=== PATIENT | female | born 1985 | race African-American/Black ===

== ENCOUNTER 2017-08-18 10:43 | Emergency (ER) | payer OTHER ==
[~2017-08-18] VITALS: Ht 167.6 cm; Wt 91.0 kg
[~2017-08-18 10:43] MED LIST: ALBUTEROL; AMLO5TAB4; BENA20TA77; QVAR; TLXL5
[2017-08-18] MEDS ORDERED: SODIUM CHLORIDE 0.9% 1,000 ML IV ONE (13:10)
[2017-08-18] MEDS ORDERED: IBUPROFEN 600MG TABLET PO STA (13:10)
[2017-08-18] MEDS ORDERED: ACETAMINOPHEN 325MG TABLET PO ONE (13:15)
[2017-08-18 13:54] LABS: BASOPHILS % 0.4 % (0.0-2.0); EOSINOPHILS % 0.1 % (0.0-5.0); HEMATOCRIT. 40.1 % (36.0-48.0); HEMOGLOBIN. 13.6 g/dL (12.0-16.0); LYMPHOCYTES % 11.1 % (20.0-50.0); MEAN CORPUSCULAR HEMOGLOBIN 30.4 pg (28.0-32.0); MEAN CORPUSCULAR VOLUME 89.9 fL (81.0-99.0); MEAN PLATELET VOLUME 10.3 fl (7.4-10.4); MONOCYTES % 9.8 % (2.0-8.0); NEUTROPHILS % 78.6 % (40.0-76.0); PLATELET 181 x1000/uL (130-400); RED BLOOD CELL COUNT 4.46 mill/uL (4.2-5.4)
[2017-08-18] MEDS ORDERED: OSELTAMIVIR 75MG CAPSULE PO ONE (14:00)
[2017-08-18 14:23] LABS: CHLORIDE 103 mEq/L (98-107)
[2017-08-18 14:42] LABS: CARBON DIOXIDE 24 mEq/L (21-32)
[2017-08-18 14:56] VITALS: BP 121/78
== END 2017-08-18 14:57 | disposition home or self-care (01) ==
LOC: ER 10:43
DX: J11.1 Influenza due to unidentified influenza virus with other respiratory manifestations (principal); J45.909 Unspecified asthma, uncomplicated; Z88.0 Allergy status to penicillin; Z87.440 Personal history of urinary (tract) infections; Z98.890 Other specified postprocedural states
CPT/HCPCS: 36415; 71045; 80053; 81025; 85025; 87804; 99285; J7030

== ENCOUNTER 2018-09-17 12:45 | Emergency (ER) | payer OTHER ==
[~2018-09-17] VITALS: Ht 167.6 cm; Wt 109.0 kg
[2018-09-17 16:07] VITALS: BP 145/95
== END 2018-09-17 16:08 | disposition home or self-care (01) ==
LOC: ER 15:05
DX: L98.8 Other specified disorders of the skin and subcutaneous tissue (principal)
CPT/HCPCS: 81025; 99282

== ENCOUNTER 2020-11-08 15:41 | Emergency (ER) | payer OTHER ==
[~2020-11-08] VITALS: Ht 167.6 cm; Wt 97.7 kg
[2020-11-08] MEDS ORDERED: KETOROLAC 30MG/ML VIAL IV STA (16:12)
[2020-11-08] MEDS ORDERED: MAGNESIUM/ALUMINUM HYDROXIDE/SIMETHICONE 30ML UDC PO STA (16:12)
[2020-11-08] MEDS ORDERED: SODIUM CHLORIDE 0.9% 1,000 ML IV ONE (16:15)
[2020-11-08 17:03] LABS: BASOPHILS % 0.3 % (0.0-2.0); EOSINOPHILS % 1.9 % (0.0-5.0); HEMATOCRIT. 34.9 % (36.0-48.0); HEMOGLOBIN. 11.3 g/dL (12.0-16.0); LYMPHOCYTES % 26.7 % (20.0-50.0); MEAN CORPUSCULAR HEMOGLOBIN 28.2 pg (28.0-32.0); MEAN CORPUSCULAR VOLUME 86.8 fL (81.0-99.0); MEAN PLATELET VOLUME 10.6 fl (7.4-10.4); MONOCYTES % 9.2 % (2.0-8.0); NEUTROPHILS % 61.9 % (40.0-76.0); PLATELET 203 x1000/uL (130-400); RED BLOOD CELL COUNT 4.02 mill/uL (4.2-5.4); RED CELL DISTRIBUTION WIDTH 15.2 % (11.6-14.6)
[2020-11-08 17:12] LABS: CHLORIDE 108 mEq/L (98-107)
[2020-11-08 17:13] LABS: PROTHROMBIN TIME 10.6 sec (9.6-11.0)
[2020-11-08 17:16] LABS: HCG SCREEN NEGATIVE
[2020-11-08 17:18] LABS: ETHANOL BLOOD < 10 mg/dL
[2020-11-08 22:04] LABS: CLARITY URINE CLOUDY (CLEAR); COLOR URINE YELLOW (YELLOW); KETONES URINE NEGATIVE (NEGATIVE); LEUKOCYTE ESTERASE URINE 3+ (NEGATIVE); NITRITE URINE NEGATIVE (NEGATIVE); OCCULT BLOOD URINE NEGATIVE (NEGATIVE); PH URINE 7.5 (4.5-8.0); PROTEIN URINE NEGATIVE (NEGATIVE); UROBILINOGEN URINE 0.2 E.U./dL (0.2-1.0)
[2020-11-08] MEDS ORDERED: IBUP-2029 MT (22:13)
[2020-11-08 22:24] LABS: *AMPHETAMINES SCREEN URINE NEGATIVE (NEGATIVE); *BARBITURATES SCREEN URINE NEGATIVE (NEGATIVE); CANNABINOID URINE SCREEN NEGATIVE (NEGATIVE); PHENCYCLIDINE URINE SCREEN NEGATIVE (NEGATIVE)
[2020-11-08 22:25] LABS: *BENZODIAZEPINES SCREEN URINE NEGATIVE (NEGATIVE); *COCAINE SCREEN URINE NEGATIVE (NEGATIVE); METHADONE URINE SCREEN NEGATIVE (NEGATIVE); OPIATES URINE SCREEN NEGATIVE (NEGATIVE)
[2020-11-08 22:45] VITALS: BP 129/78
== END 2020-11-08 22:46 | disposition home or self-care (01) ==
LOC: ER 15:41
DX: K80.50 Calculus of bile duct without cholangitis or cholecystitis without obstruction (principal); J45.909 Unspecified asthma, uncomplicated; Z88.0 Allergy status to penicillin; Z98.890 Other specified postprocedural states
CPT/HCPCS: 36415; 76705; 80053; 80305; 80320; 81003; 83690; 84703; 85025; 85610; 87086; 93005; 96361; 96374; 99285; J1885; J7030; Z7610; G0480

== ENCOUNTER 2021-01-21 01:30 | Emergency (ER) | payer MEDICAID, OTHER ==
[~2021-01-21] VITALS: Ht 167.6 cm; Wt 100.0 kg
[~2021-01-21 01:30] MED LIST changes: +IBUP-2029 MT
[2021-01-21] MEDS ORDERED: MORPHINE SULFATE 4 MG/ML CPJ (NOT FOR IM USE) IV STA (03:03)
[2021-01-21] MEDS ORDERED: ONDANSETRON HCL 4MG/2ML INJ IV STA (03:03)
[2021-01-21] MEDS ORDERED: SODIUM CHLORIDE 0.9% 1,000 ML IV ONE (03:15)
[2021-01-21 03:30] LABS: BASOPHILS % 0.7 % (0.0-2.0); EOSINOPHILS % 0.9 % (0.0-5.0); HEMATOCRIT. 33.2 % (36.0-48.0); LYMPHOCYTES % 18.1 % (20.0-50.0); MEAN CORPUSCULAR HEMOGLOBIN 28.6 pg (28.0-32.0); MEAN CORPUSCULAR VOLUME 86.1 fL (81.0-99.0); MEAN PLATELET VOLUME 9.9 fl (7.4-10.4); MONOCYTES % 6.2 % (2.0-8.0); NEUTROPHILS % 74.1 % (40.0-76.0); PLATELET 221 x1000/uL (130-400); RED BLOOD CELL COUNT 3.86 mill/uL (4.2-5.4); RED CELL DISTRIBUTION WIDTH 15.3 % (11.6-14.6)
[2021-01-21 03:31] LABS: CLARITY URINE CLOUDY (CLEAR); COLOR URINE YELLOW (YELLOW); KETONES URINE TRACE (NEGATIVE); LEUKOCYTE ESTERASE URINE TRACE (NEGATIVE); NITRITE URINE NEGATIVE (NEGATIVE); OCCULT BLOOD URINE NEGATIVE (NEGATIVE); PH URINE 5.5 (4.5-8.0); PROTEIN URINE NEGATIVE (NEGATIVE); SPECIFIC GRAVITY URINE 1.029 (1.005-1.030); UROBILINOGEN URINE 0.2 E.U./dL (0.2-1.0)
[2021-01-21 03:39] LABS: CHLORIDE 108 mEq/L (98-107)
[2021-01-21 03:47] LABS: PROTHROMBIN TIME 10.8 sec (9.6-11.0)
[2021-01-21] MEDS ORDERED: TRAM50TA MT (06:04)
[2021-01-21] MEDS ORDERED: NITR-87 MT (06:04)
[2021-01-21 06:19] VITALS: BP 130/84
== END 2021-01-21 06:20 | disposition home or self-care (01) ==
LOC: ER 01:30
DX: K80.50 Calculus of bile duct without cholangitis or cholecystitis without obstruction (principal); N39.0 Urinary tract infection, site not specified; R11.10 Vomiting, unspecified; J45.909 Unspecified asthma, uncomplicated; Z88.0 Allergy status to penicillin; Z79.899 Other long term (current) drug therapy; Z98.890 Other specified postprocedural states
CPT/HCPCS: 36415; 76705; 80053; 81003; 81025; 83690; 85025; 85610; 93005; 96361; 96374; 96375; 99285; J2270; J2405; J7030

== ENCOUNTER 2021-12-22 17:36 | Emergency (ER) | payer MEDICAID, OTHER ==
[~2021-12-22] VITALS: Ht 165.1 cm; Wt 75.0 kg
[~2021-12-22 17:36] MED LIST changes: +NITR-87 MT; +TRAM50TA MT
[2021-12-22] MEDS ORDERED: AZITHROMYCIN 500 MG TABLET PO ONE (18:30)
[2021-12-22] MEDS ORDERED: AZITHROMYCIN 500 MG TABLET PO NR (19:00)
[2021-12-22] MEDS: IBUPROFEN 600MG TABLET PO NR ×2 (19:00→20:24)
[2021-12-22] MEDS ORDERED: IBUP-2029 MT (19:59)
[2021-12-22] MEDS ORDERED: AZIT250T12 MT (19:59)
[2021-12-22 20:24] VITALS: BP 131/83
== END 2021-12-22 20:00 | disposition home or self-care (01) ==
LOC: ER 17:36
DX: J03.90 Acute tonsillitis, unspecified (principal); I10 Essential (primary) hypertension; M79.18 Myalgia, other site; R19.7 Diarrhea, unspecified; J45.909 Unspecified asthma, uncomplicated
CPT/HCPCS: 81025; 87070; 87077; 87430; 99283

== ENCOUNTER 2022-02-03 18:16 | Emergency (ER) | payer OTHER ==
[~2022-02-03] VITALS: Ht 167.6 cm; Wt 105.0 kg
[~2022-02-03 18:16] MED LIST changes: +AZIT250T12 MT
[2022-02-03] MEDS ORDERED: KETOROLAC 60MG/2ML VIAL IM ONE (20:30)
[2022-02-03] MEDS ORDERED: HYDROCODONE/ACETAMINOPHEN 10/325MG TABLET PO ONE (20:30)
[2022-02-03] MEDS ORDERED: IBUP-2029 MT (20:37)
[2022-02-03] MEDS ORDERED: HYDR-4001 MT (20:37)
[2022-02-03 20:52] VITALS: BP 142/87
[2022-02-04] MEDS ORDERED: CYCL10TA21 MT (17:11)
== END 2022-02-03 21:00 | disposition home or self-care (01) ==
LOC: ER 18:16
DX: S46.912A Strain of unspecified muscle, fascia and tendon at shoulder and upper arm level, left arm, initial encounter (principal); J45.909 Unspecified asthma, uncomplicated; Z88.0 Allergy status to penicillin; Z79.899 Other long term (current) drug therapy; Z98.890 Other specified postprocedural states; X58.XXXA Exposure to other specified factors, initial encounter; Y93.89 Activity, other specified; Y92.89 Other specified places as the place of occurrence of the external cause; Y99.8 Other external cause status
CPT/HCPCS: 96372; 99283; J1885

== ENCOUNTER 2022-02-04 15:44 | Emergency (ER) | payer OTHER ==
[~2022-02-04] VITALS: Ht 167.6 cm; Wt 104.0 kg
[~2022-02-04 15:44] MED LIST changes: +HYDR-4001 MT
[2022-02-04 15:48] VITALS: BP 152/96
[2022-02-04] MEDS ORDERED: KETOROLAC 60MG/2ML VIAL IM ONE (16:15)
[2022-02-04] MEDS ORDERED: CYCL10TA21 MT (17:11)
== END 2022-02-04 17:40 | disposition home or self-care (01) ==
LOC: ER 15:44
DX: M54.12 Radiculopathy, cervical region (principal); R03.0 Elevated blood-pressure reading, without diagnosis of hypertension
CPT/HCPCS: 72040; 99283

== ENCOUNTER 2022-10-03 22:14 | Emergency (ER) | payer MEDICAID, OTHER ==
[~2022-10-03] VITALS: Ht 167.6 cm; Wt 104.0 kg
[~2022-10-03 22:14] MED LIST changes: +CYCL10TA21 MT
[2022-10-03 23:13] VITALS: BP 135/89
[2022-10-03] MEDS ORDERED: ONDANSETRON 4MG ODT PO STA (23:51)
[2022-10-03] MEDS ORDERED: KETOROLAC 60MG/2ML VIAL IM STA (23:51)
[2022-10-04 00:15] LABS: BASOPHILS % 0.4 % (0.0-2.0); EOSINOPHILS % 2.6 % (0.0-5.0); HEMATOCRIT. 33.8 % (36.0-48.0); HEMOGLOBIN. 11.1 g/dL (12.0-16.0); LYMPHOCYTES % 30.1 % (20.0-50.0); MEAN CORPUSCULAR HEMOGLOBIN 28.2 pg (28.0-32.0); MEAN CORPUSCULAR VOLUME 85.5 fL (81.0-99.0); MEAN PLATELET VOLUME 9.8 fl (7.4-10.4); MONOCYTES % 11.7 % (2.0-8.0); NEUTROPHILS % 55.2 % (40.0-76.0); PLATELET 220 x1000/uL (130-400); RED BLOOD CELL COUNT 3.95 mill/uL (4.2-5.4)
[2022-10-04 00:21] LABS: CHLORIDE 109 mEq/L (98-107)
[2022-10-04] MEDS ORDERED: IBUP-2029 MT (01:13)
== END 2022-10-04 01:49 | disposition home or self-care (01) ==
LOC: ER 22:28
DX: K80.20 Calculus of gallbladder without cholecystitis without obstruction (principal); K76.0 Fatty (change of) liver, not elsewhere classified; J45.909 Unspecified asthma, uncomplicated; Z79.899 Other long term (current) drug therapy; Z98.890 Other specified postprocedural states
CPT/HCPCS: 36415; 76705; 80053; 81025; 83690; 85025; 96372; 99285; J1885; Q0162; Z7610

== ENCOUNTER 2022-10-17 15:07 | Inpatient (IN) | payer OTHER ==
[~2022-10-17] VITALS: Ht 165.1 cm; Wt 89.8 kg
[2022-10-17] MEDS ORDERED: ONDANSETRON HCL 4MG/2ML INJ IV STA (19:18)
[2022-10-17] MEDS ORDERED: MORPHINE SULFATE 4 MG/ML CPJ (NOT FOR IM USE) IV STA (19:18)
[2022-10-17 20:47] LABS: BASOPHILS % 0.2 % (0.0-2.0); EOSINOPHILS % 1.1 % (0.0-5.0); HEMATOCRIT. 36.8 % (36.0-48.0); HEMOGLOBIN. 12.1 g/dL (12.0-16.0); MEAN CORPUSCULAR HEMOGLOBIN 28.3 pg (28.0-32.0); MEAN CORPUSCULAR VOLUME 86.3 fL (81.0-99.0); MEAN PLATELET VOLUME 10.6 fl (7.4-10.4); MONOCYTES % 3.9 % (2.0-8.0); NEUTROPHILS % 81.8 % (40.0-76.0); PLATELET 241 x1000/uL (130-400); RED BLOOD CELL COUNT 4.26 mill/uL (4.2-5.4); RED CELL DISTRIBUTION WIDTH 15.5 % (11.6-14.6)
[2022-10-17 20:54] LABS: CHLORIDE 103 mEq/L (98-107)
[2022-10-17 20:57] LABS: CLARITY URINE CLOUDY (CLEAR); COLOR URINE ORANGE (YELLOW); KETONES URINE 1+ (NEGATIVE); LEUKOCYTE ESTERASE URINE 1+ (NEGATIVE); NITRITE URINE NEGATIVE (NEGATIVE); OCCULT BLOOD URINE 3+ (NEGATIVE); PH URINE 5.5 (4.5-8.0); PROTEIN URINE 3+ (NEGATIVE); SPECIFIC GRAVITY URINE 1.024 (1.005-1.030)
[2022-10-17 21:06] LABS: HCG SCREEN NEGATIVE
[2022-10-17] MEDS ORDERED: METRONIDAZOLE 500 MG PREMIX 100 ML IV ONE (22:00)
[2022-10-17] MEDS ORDERED: LEVOFLOXACIN 750MG PREMIX 150 ML IV ONE (22:00)
[2022-10-18] MEDS ORDERED: KETOROLAC 15MG/ML VIAL IV ONE (01:15)
[2022-10-18] MEDS ORDERED: ONDANSETRON HCL 4MG/2ML INJ IV ONE (01:15)
[2022-10-18] MEDS ORDERED: KETOROLAC 15MG/ML VIAL IV NR (05:30)
[2022-10-18] MEDS ORDERED: ONDANSETRON HCL 4MG/2ML INJ IV NR (05:30)
[2022-10-18] MEDS ORDERED: LEVOFLOXACIN 750MG PREMIX 150 ML IV NR (05:30)
[2022-10-18 10:21] VITALS: BP 109/67
[2022-10-18] MEDS ORDERED: ONDANSETRON HCL 4MG/2ML INJ IV PRN (11:45)
[2022-10-18 12:00] VITALS: BP 112/69
[2022-10-18 16:00] VITALS: BP 117/64
[2022-10-18] MEDS ORDERED: INFLUENZA VACCINE 05/PF 0.5 ML SYRINGE IM ONE (16:45)
[2022-10-18] MEDS: METRONIDAZOLE 500 MG PREMIX 100 ML IV SCH ×2 (16:51→20:29)
[2022-10-18] MEDS: LEVOFLOXACIN 500MG PREMIX 100 ML IV SCH (16:51)
[2022-10-18 20:00] VITALS: BP 118/77
[2022-10-18] MEDS: KETOROLAC 30MG/ML VIAL IV PRN (20:30)
[2022-10-19] VITALS (7 sets, daily range): BP systolic 100–120; BP diastolic 60–86
[2022-10-19] MEDS: METRONIDAZOLE 500 MG PREMIX 100 ML IV SCH ×2 (05:47→13:09)
[2022-10-19] MEDS ORDERED: INFLUENZA VACCINE 05/PF 0.5 ML SYRINGE IM ONE (06:00)
[2022-10-19] MEDS ORDERED: LEVO-65 MT (11:01)
[2022-10-19] MEDS ORDERED: HYDR-4001 MT (11:01)
[2022-10-19] MEDS ORDERED: METR-167 MT (11:01)
[2022-10-19] MEDS: KETOROLAC 30MG/ML VIAL IV PRN ×3 (13:05→20:40)
[2022-10-19] MEDS: LEVOFLOXACIN 500MG PREMIX 100 ML IV SCH (14:26)
== END 2022-10-19 22:13 | disposition short-term general hospital (02) ==
LOC: ER 15:37 → 6WST 10-18 01:11 → EDBEDREQ 10-18 02:36 → EDBEDREQTM 10-18 02:36 → ENRESERV 10-18 03:29 → 6EST 10-18 16:00
PROVIDERS: ADMIT Internal Medicine; ATTEND Internal Medicine
DX: K80.10 Calculus of gallbladder with chronic cholecystitis without obstruction (principal); E87.1 Hypo-osmolality and hyponatremia; K76.0 Fatty (change of) liver, not elsewhere classified; E66.9 Obesity, unspecified; Z20.822 Contact with and (suspected) exposure to COVID-19; J45.909 Unspecified asthma, uncomplicated; Z88.0 Allergy status to penicillin; Z98.891 History of uterine scar from previous surgery; Z68.32 Body mass index [BMI] 32.0-32.9, adult
CPT/HCPCS: 36415; 76705; 80053; 81003; 84703; 85025; 87426; 90686; 99285; C9803; J1885; J1956; J2270; J2405; J3490

== ENCOUNTER 2022-11-05 08:44 | Emergency (ER) | payer OTHER ==
[~2022-11-05] VITALS: Ht 167.6 cm; Wt 100.0 kg
[~2022-11-05 08:44] MED LIST changes: -ALBUTEROL; +LEVO-65 MT; +METR-167 MT; -NITR-87 MT; -QVAR; -TRAM50TA MT
[2022-11-05 08:58] VITALS: BP 142/91
== END 2022-11-05 10:34 | disposition home or self-care (01) ==
LOC: ER 08:53
DX: Z48.00 Encounter for change or removal of nonsurgical wound dressing (principal); J45.909 Unspecified asthma, uncomplicated; Z88.0 Allergy status to penicillin; Z90.89 Acquired absence of other organs
CPT/HCPCS: 99281

== ENCOUNTER 2023-02-14 11:00 | Emergency (ER) | payer OTHER ==
[~2023-02-14] VITALS: Ht 167.6 cm; Wt 103.0 kg
[2023-02-14 11:09] VITALS: BP 168/99; PULSE 109; RESP 20; TEMP 98.3; O2SAT 99
[2023-02-14] MEDS ORDERED: IBUPROFEN 600MG TABLET PO ONE (12:15)
[2023-02-14] MEDS ORDERED: IBUP-2029 MT (12:55)
== END 2023-02-14 13:12 | disposition home or self-care (01) ==
LOC: ER 11:10
DX: S49.91XA Unspecified injury of right shoulder and upper arm, initial encounter (principal); X58.XXXA Exposure to other specified factors, initial encounter; Y93.89 Activity, other specified; Y92.89 Other specified places as the place of occurrence of the external cause; Y99.8 Other external cause status; J45.909 Unspecified asthma, uncomplicated; I10 Essential (primary) hypertension
CPT/HCPCS: 73030; 99283; A4565

== ENCOUNTER 2023-09-19 14:36 | Emergency (ER) | payer SELFPAY ==
[~2023-09-19] VITALS: Ht 167.6 cm; Wt 225.0 kg
[2023-09-19 14:43] VITALS: O2SAT 100
[2023-09-19] MEDS: TETANUS, DIPHTHERIA, PERTUSSIS VAC/PF 0.5ML (>10YR OLD) IM ONE (16:38)
[2023-09-19] MEDS: LIDOCAINE HCL/EPINEPHRINE 1%-EPI 1:100,000 20 ML VIAL INFIL ONE (16:39)
[2023-09-19] MEDS: ONDANSETRON 4MG ODT PO ONE (16:39)
[2023-09-19] MEDS: HYDROCODONE/ACETAMINOPHEN 10/325MG TABLET PO ONE (16:39)
[2023-09-19] MEDS ORDERED: DOXY100C5 MT (16:50)
[2023-09-19] MEDS ORDERED: METR-167 MT (16:50)
[2023-09-19] MEDS ORDERED: IBUP-2030 MT (16:50)
[2023-09-19 17:35] VITALS: BP 129/80; PULSE 92; RESP 12; TEMP 97.9
== END 2023-09-19 17:37 | disposition home or self-care (01) ==
LOC: ER 14:36
DX: L02.31 Cutaneous abscess of buttock (principal); J45.909 Unspecified asthma, uncomplicated; I10 Essential (primary) hypertension; Z98.890 Other specified postprocedural states; Z90.49 Acquired absence of other specified parts of digestive tract; Z88.0 Allergy status to penicillin
CPT/HCPCS: 99285; 10060; 87070; 87205; 90715; 90471; Q0162; J3490

== ENCOUNTER 2023-09-21 21:36 | Emergency (ER) | payer MEDICAID ==
[~2023-09-21] VITALS: Ht 167.6 cm; Wt 102.0 kg
[~2023-09-21 21:36] MED LIST changes: +DOXY100C5 MT; +IBUP-2030 MT
[2023-09-21 21:44] VITALS: O2SAT 99
[2023-09-22] MEDS: BACITRACIN ZINC OINT UDPKT TOP ONE (00:04)
[2023-09-22 00:36] VITALS: BP 129/82; PULSE 95; RESP 18; TEMP 98.5
== END 2023-09-22 00:38 | disposition home or self-care (01) ==
LOC: ER 21:36
DX: L02.31 Cutaneous abscess of buttock (principal); J45.909 Unspecified asthma, uncomplicated; I10 Essential (primary) hypertension; Z90.49 Acquired absence of other specified parts of digestive tract; Z98.890 Other specified postprocedural states; Z88.0 Allergy status to penicillin
CPT/HCPCS: 99282; Z7610 ×2

== ENCOUNTER 2023-09-23 10:09 | Emergency (ER) | payer MEDICAID ==
[~2023-09-23] VITALS: Ht 177.8 cm; Wt 99.0 kg
[2023-09-23 10:31] VITALS: O2SAT 98
[2023-09-23] MEDS: BACITRACIN ZINC OINT UDPKT TOP ONE ×2 (13:00→13:42)
[2023-09-23] MEDS: LIDOCAINE HCL/PF 1% 10 MG/ML 5ML VIAL INFIL ONE (13:00)
[2023-09-23 14:40] VITALS: BP 139/69; PULSE 94; RESP 19; TEMP 98.4
== END 2023-09-23 16:22 | disposition home or self-care (01) ==
LOC: ER 10:09
DX: L05.01 Pilonidal cyst with abscess (principal); J45.909 Unspecified asthma, uncomplicated; I10 Essential (primary) hypertension; Z98.890 Other specified postprocedural states; Z90.49 Acquired absence of other specified parts of digestive tract; Z79.899 Other long term (current) drug therapy
CPT/HCPCS: 76705; 99284; J3490; Z7610 ×3

== ENCOUNTER 2023-10-11 08:22 | Emergency (ER) | payer MEDICAID ==
[~2023-10-11] VITALS: Ht 175.3 cm; Wt 90.0 kg
[2023-10-11 08:33] VITALS: O2SAT 100
[2023-10-11] MEDS: IBUPROFEN 600MG TABLET PO ONE (09:00)
[2023-10-11] MEDS: DEXAMETHASONE 10 MG/ML VIAL PO ONE (09:00)
[2023-10-11] MEDS ORDERED: AZIT250T12 MT (11:44)
[2023-10-11] MEDS ORDERED: IBUP-2029 MT (11:45)
[2023-10-11] MEDS ORDERED: BENZ1LOZ73 MT (11:45)
[2023-10-11 12:38] VITALS: BP 156/98; PULSE 89; RESP 18; TEMP 97.7
== END 2023-10-11 13:04 | disposition home or self-care (01) ==
LOC: ER 08:22
DX: J03.90 Acute tonsillitis, unspecified (principal); J45.909 Unspecified asthma, uncomplicated; I10 Essential (primary) hypertension; Z90.49 Acquired absence of other specified parts of digestive tract; Z98.890 Other specified postprocedural states; Z88.0 Allergy status to penicillin
CPT/HCPCS: 81025; 87430; 87070; 99283; J1100; Z7610

== ENCOUNTER 2024-04-07 08:44 | Emergency (ER) | payer MEDICAID ==
[~2024-04-07] VITALS: Ht 170.2 cm; Wt 100.0 kg
[~2024-04-07 08:44] MED LIST changes: +BENZ1LOZ73 MT
[2024-04-07 08:46] VITALS: TEMP 98.6; O2SAT 99
[2024-04-07 09:11] VITALS: BP 166/92; PULSE 109; RESP 18
[2024-04-07] MEDS: KETOROLAC 30MG/ML VIAL IM ONE (09:11)
[2024-04-07] MEDS ORDERED: IBUP-2029 MT (10:45)
[2024-04-07] MEDS ORDERED: AZIT250T12 MT (10:45)
== END 2024-04-07 11:31 | disposition home or self-care (01) ==
LOC: ER 08:44
DX: J03.90 Acute tonsillitis, unspecified (principal); I10 Essential (primary) hypertension; J45.909 Unspecified asthma, uncomplicated; Z88.0 Allergy status to penicillin; Z20.822 Contact with and (suspected) exposure to COVID-19; Z79.899 Other long term (current) drug therapy; Z98.890 Other specified postprocedural states; Z90.49 Acquired absence of other specified parts of digestive tract
CPT/HCPCS: 99283; 87426; 87430; 96372; J1885

== ENCOUNTER 2024-09-30 01:17 | Emergency (ER) | payer MEDICAID ==
[~2024-09-30] VITALS: Ht 167.6 cm; Wt 113.0 kg
[~2024-09-30 01:17] MED LIST changes: -AMLO5TAB4; +AMLO5TAB5
[2024-09-30 01:45] VITALS: O2SAT 99
[2024-09-30] MEDS: ONDANSETRON 4MG ODT PO ONE ×2 (03:52→04:27)
[2024-09-30] MEDS: MECLIZINE 25MG TABLET PO ONE (03:52)
[2024-09-30] MEDS ORDERED: MECL-299 MT (05:08)
[2024-09-30] MEDS ORDERED: ONDA-241 MT (05:08)
[2024-09-30 05:15] VITALS: BP 159/94; PULSE 78; RESP 16; TEMP 36.7; O2SAT 99
== END 2024-09-30 05:16 | disposition home or self-care (01) ==
LOC: ER 01:17
DX: R42 Dizziness and giddiness (principal); J45.909 Unspecified asthma, uncomplicated; M19.90 Unspecified osteoarthritis, unspecified site; Z88.0 Allergy status to penicillin
CPT/HCPCS: 99284; J8597; Q0162